=== PATIENT | male | born 1930 | race Caucasian/White ===

== ENCOUNTER 2019-04-08 07:42 | Outpatient (RCR) | payer MEDICARE, BC | END 2019-04-08 17:25 | LOC: OPPGERO 07:42 | DX: F41.1 Generalized anxiety disorder (principal); F32.9 Major depressive disorder, single episode, unspecified; F03.90 Unspecified dementia, unspecified severity, without behavioral disturbance, psychotic disturbance, mood disturbance, and anxiety; I25.10 Atherosclerotic heart disease of native coronary artery without angina pectoris; E78.5 Hyperlipidemia, unspecified; I25.2 Old myocardial infarction; R09.02 Hypoxemia; E55.9 Vitamin D deficiency, unspecified; G62.9 Polyneuropathy, unspecified; Z79.1 Long term (current) use of non-steroidal anti-inflammatories (NSAID); Z79.82 Long term (current) use of aspirin; Z79.899 Other long term (current) drug therapy ==

== ENCOUNTER 2019-04-09 09:22 | Outpatient (RCR) | payer MEDICARE, BC | END 2019-05-08 13:07 | LOC: OPPGERO 09:22 | DX: F41.1 Generalized anxiety disorder (principal); F32.9 Major depressive disorder, single episode, unspecified; F03.90 Unspecified dementia, unspecified severity, without behavioral disturbance, psychotic disturbance, mood disturbance, and anxiety; S76.011A Strain of muscle, fascia and tendon of right hip, initial encounter; I25.10 Atherosclerotic heart disease of native coronary artery without angina pectoris; E78.5 Hyperlipidemia, unspecified; I25.2 Old myocardial infarction; M19.012 Primary osteoarthritis, left shoulder; M19.011 Primary osteoarthritis, right shoulder; G62.9 Polyneuropathy, unspecified; N20.0 Calculus of kidney; G25.81 Restless legs syndrome; E53.0 Riboflavin deficiency; H40.9 Unspecified glaucoma; R09.02 Hypoxemia; Z79.899 Other long term (current) drug therapy ==